=== PATIENT | male | born 1985 | race Caucasian/White ===

== ENCOUNTER 2018-03-02 00:31 | Emergency (ER) | payer OTHER ==
[~2018-03-02] VITALS: Ht 182.9 cm; Wt 81.6 kg
[2018-03-02 00:31] VITALS: BP 111/67
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
[2018-03-02] MEDS ORDERED: ORPHENADRINE CITRATE 60 MG/2 ML VIAL. IM ONE (01:00)
[2018-03-02] MEDS ORDERED: MORPHINE SULFATE 10 MG/ML SYRINGE. SQ ONE (01:00)
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
[2018-03-02] MEDS ORDERED: HYDR-79 PO (03:20)
[2018-03-02] MEDS ORDERED: CYCL-331 PO (03:20)
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
== END 2018-03-02 03:46 | disposition home or self-care (01) ==
LOC: ER 00:31
DX: S13.4XXA Sprain of ligaments of cervical spine, initial encounter (principal); R91.1 Solitary pulmonary nodule; Q98.4 Klinefelter syndrome, unspecified; Z85.47 Personal history of malignant neoplasm of testis; Z90.49 Acquired absence of other specified parts of digestive tract; S20.222A Contusion of left back wall of thorax, initial encounter; S20.221A Contusion of right back wall of thorax, initial encounter; Z88.8 Allergy status to other drugs, medicaments and biological substances; Z88.6 Allergy status to analgesic agent; Z88.7 Allergy status to serum and vaccine; V89.2XXA Person injured in unspecified motor-vehicle accident, traffic, initial encounter; Y93.89 Activity, other specified; Y92.488 Other paved roadways as the place of occurrence of the external cause; Y99.8 Other external cause status
CPT/HCPCS: 71046; 72125; 72128; 96372; 99284; J2270; J2360

== ENCOUNTER → 2018-03-16 | Outpatient (CLI) | payer OTHER ==
[2018-03-02 00:31] VITALS: BP 111/67
[~2018-03-16] MED LIST: CYCL-331 PO; HYDR-79 PO
--- NOTE | 2018-03-17 02:32 | RAD ---
INDICATION: LT ARM PAIN, PT HAS KNOWN SUPERFICAL THROMBUS COMPARISON: None. TECHNIQUE: Grayscale, color and doppler ultrasound images were obtained of the left upper extremity venous vasculature. No thrombus identified in the internal jugular, subclavian, axillary, brachial,, cephalic, radial or ulnar veins. Thrombus is identified in left basilic vein including extending to the antecubital region. IMPRESSION: 1. Thrombus is identified within the basilic vein. Report was called to the ordering provider by the dean of instruction performing the examination. Electronically signed by: Avila Waters MD (03/17/2018 2:29 AM) [id number]
== END | disposition home or self-care (01) ==
LOC: US 23:21
DX: I82.612 Acute embolism and thrombosis of superficial veins of left upper extremity (principal)
CPT/HCPCS: 93971

== ENCOUNTER → 2018-11-08 | Outpatient (CLI) | payer OTHER ==
[~2018-11-08] MED LIST changes: +HYDR-1179 PO; -HYDR-79 PO
--- NOTE | 2018-11-09 00:03 | RAD ---
Testicular ultrasound History: lt testicle pain x 1 week. Right testicle removed 2010 due to torsion. Comparison: None. Technique: Multiple grayscale, color flow Doppler and Doppler spectral analysis images of the scrotum are obtained. Findings: Right testicle is surgically absent. Left testicle measures 2.1 x 1.7 x 1.1 cm. Left testicle demonstrates normal parenchymal echogenicity. There is normal low resistance arterial flow in the left testicle. The left epididymis is homogeneous and does not demonstrate hyperemia. There is small left hydrocele. Mild left varicocele. No scrotal wall thickening or hyperemia is seen. IMPRESSION: 1. No evidence of left testicular mass or torsion. 2. Mild left varicocele. 3. Small left hydrocele. Electronically signed by: Perfecto Cervantes MD (11/08/2018 11:58 PM) [facility]
== END | disposition home or self-care (01) ==
LOC: US 23:00
DX: I86.1 Scrotal varices (principal); N43.2 Other hydrocele
CPT/HCPCS: 76870

== ENCOUNTER → 2018-12-26 | Outpatient (CLI) | payer OTHER | END | disposition home or self-care (01) | LOC: SURG 14:58 | PROVIDERS: ATTEND Anesthesiology Pain Medicine | DX: M47.812 Spondylosis without myelopathy or radiculopathy, cervical region (principal); M19.90 Unspecified osteoarthritis, unspecified site; F17.200 Nicotine dependence, unspecified, uncomplicated | CPT/HCPCS: 99213 ==

== ENCOUNTER → 2019-01-09 | Outpatient (CLI) | payer OTHER ==
[~2019-01-09] MED LIST changes: +BUPIVACAINE MPF 0.25% 30 ML VIAL. ONE; +LIDOCAINE 1% PF 30 ML VIAL. ONE
== END | disposition home or self-care (01) ==
LOC: SURG 13:57
PROVIDERS: ATTEND Anesthesiology Pain Medicine
DX: M47.812 Spondylosis without myelopathy or radiculopathy, cervical region (principal); F32.9 Major depressive disorder, single episode, unspecified; F41.9 Anxiety disorder, unspecified; Z98.890 Other specified postprocedural states; Z79.899 Other long term (current) drug therapy; Z72.89 Other problems related to lifestyle; F17.210 Nicotine dependence, cigarettes, uncomplicated; Z88.6 Allergy status to analgesic agent; Z88.8 Allergy status to other drugs, medicaments and biological substances; Z88.7 Allergy status to serum and vaccine; K08.409 Partial loss of teeth, unspecified cause, unspecified class; Z90.49 Acquired absence of other specified parts of digestive tract
CPT/HCPCS: 64490; 64491; J2001; J3490